=== PATIENT | female | born 1985 ===

== ENCOUNTER → 2016-08-27 | Outpatient (CLI) | payer BC, OTHER ==
[2016-08-27 14:11] LABS: BASO % 0.2 %; BASO ABS # 0.01 K/uL (0-0.2); COMPLETE YES; EOS % 0.7 %; HEMATOCRIT 40.3 % (37-47); IG% 0.2 %; LYMPH % 32.3 %; LYMPH ABS # 1.76 K/uL (1.2-3.4); MEAN CELL VOLUME 91.6 fL (80-100); MEAN CORPUSCULAR HEMOGLOBIN 31.6 pg (25-34); MEAN CORPUSCULAR HGB CONC 34.5 g/dl (32-36); MEAN PLATELET VOLUME 10.9 fL (7.4-10.4); MONO % 9.2 %; NEUT % 57.4 %; PLATELET COUNT 149 K/uL (130-400); WHITE BLOOD COUNT 5.45 K/uL (4.8-10.8)
[2016-08-27 14:22] LABS: ALT/SGPT 25 U/L (12-78); BLOOD UREA NITROGEN 12 mg/dl (7-18); BUN/CREATININE RATIO 15.3 (10-20); CARBON DIOXIDE 25 mmol/L (21-32); CHLORIDE 107 mmol/L (98-107); CREATININE 0.81 mg/dl (0.60-1.20); GLUCOSE 72 mg/dl (70-99); SODIUM 139 mmol/L (136-145)
[2016-08-27 14:23] LABS: CALCIUM 9.5 mg/dl (8.5-10.1)
[2016-08-27 14:25] LABS: ALB/GLOB RATIO 1.4 (0.9-2); ALKALINE PHOSPHATASE 52 U/L (45-117); AST/SGOT 26 U/L (15-37)
[2016-08-27 14:51] LABS: LYME DISEASE AB IGM NEG (NEG)
[2016-08-27 14:54] LABS: LYME DISEASE AB IGG NEG (NEG)
== END | disposition home or self-care (01) ==
LOC: C.LABSPEC 13:20
PROVIDERS: ATTEND Family Medicine
DX: L30.9 Dermatitis, unspecified (principal)